=== PATIENT | male | born 1950 ===

== ENCOUNTER 2016-07-25 07:45 | Day surgery (SDC) | payer MEDICARE, OTHER ==
[~2016-07-25] VITALS: Ht 180.3 cm; Wt 93.7 kg
[2016-07-25 08:58] VITALS: BP 137/81; PULSE 85; TEMP 97.8
[2016-07-25] MEDS ORDERED: TRULICITY0.75 MG/0. SQ (09:04)
[2016-07-25] MEDS ORDERED: CANA100T PO (09:04)
[2016-07-25] MEDS ORDERED: ZOCOR 40MG40 MG PO (09:05)
[2016-07-25] MEDS ORDERED: COZAAR 25MG25 MG/TAB PO (09:05)
[2016-07-25] MEDS ORDERED: HUMULIN 70/3100 U/M1 SQ (09:07)
[2016-07-25] MEDS ORDERED: ASPIRIN E.C. 8181 MG PO (09:08)
[2016-07-25 11:15] VITALS: BP 145/73; PULSE 100
[2016-07-25 11:30] VITALS: BP 127/69; PULSE 99
[2016-07-25] MEDS ORDERED: ZANTAC 150MG T150 MG PO (11:35)
[2016-07-25 11:45] VITALS: BP 104/64; PULSE 104
== END 2016-07-25 12:15 | disposition home or self-care (01) ==
LOC: SDCO 07:45
DX: R06.02 Shortness of breath (principal); R05 Cough; J98.11 Atelectasis; Z72.0 Tobacco use; I10 Essential (primary) hypertension; E11.9 Type 2 diabetes mellitus without complications; Z79.4 Long term (current) use of insulin
CPT/HCPCS: J2704